=== PATIENT | female | born 1985 | race Caucasian/White ===

== ENCOUNTER → 2018-05-02 | Outpatient (CLI) | payer OTHER ==
--- NOTE | 2018-05-02 16:31 | RADIOLOGY REPORT (SQ) ---
EXAM DESCRIPTION: T SPINE AP/LAT COMPLETED DATE/TIME: 05/02/2018 2:56 pm REASON FOR STUDY: M54.6 ACUTE RIGHT-SIDED THORACIC BACK PAIN COMPARISON: None. NUMBER OF VIEWS: Two views supine. Two views erect. TECHNIQUE: AP and lateral radiographic images acquired of the thoracic spine. LIMITATIONS: None. FINDINGS: MINERALIZATION: Normal. ALIGNMENT: Mild scoliosis convex right. VERTEBRAE: No fracture or bone lesion. Maintained height, normal segmentation. DISCS: No significant loss of height or significant narrowing. No large osteophytes. HARDWARE: None in the spine. MEDIASTINUM AND SOFT TISSUES: Normal heart size and aortic contour. No soft tissue abnormality. VISUALIZED LUNG THORNTON: Clear. OTHER: No other significant finding. IMPRESSION: Mild scoliosis convex right. No acute findings. TECHNICAL DOCUMENTATION: JOB ID: [id number] [employer]- All Rights Reserved Reading location - IP/workstation name: [email or web address]
== END ==
LOC: OD 14:29
PROVIDERS: ATTEND Nurse Practitioner Family
DX: M54.6 Pain in thoracic spine (principal); M41.84 Other forms of scoliosis, thoracic region
CPT/HCPCS: 72070

== ENCOUNTER → 2018-10-19 | Outpatient (CLI) | payer OTHER ==
--- NOTE | 2018-10-19 13:50 | RADIOLOGY REPORT (SQ) ---
EXAM DESCRIPTION: SCOLIOSIS SERIES COMPLETED DATE/TIME: 10/19/2018 1:19 pm REASON FOR STUDY: SCOLIOSIS M41.9 SCOLIOSIS, UNSPECIFIED COMPARISON: April 2018 NUMBER OF VIEWS: One view. TECHNIQUE: Standing AP exam of the thoracolumbar spine. LIMITATIONS: None. FINDINGS: The previously described mild thoracic scoliosis convex to the right is again identified a nd appears essentially unchanged. No significant vertebral compression or disc space reduction is se en. No bony anomalies are identified. IMPRESSION: No significant interval change. The previously described mild thoracic scoliosis convex to the right is again identified and appears essentially unchanged. Other findings as noted above TECHNICAL DOCUMENTATION: JOB ID: [id number] [employer]- All Rights Reserved Reading location - IP/workstation name: [email or web address]
== END ==
LOC: OD 12:48
PROVIDERS: ATTEND Nurse Practitioner Family
DX: M41.9 Scoliosis, unspecified (principal)
CPT/HCPCS: 72082

== ENCOUNTER 2018-11-11 12:41 | Emergency (ER) | payer OTHER ==
[2018-11-11 15:16] LABS: APPEARANCE,URINE SLIGHTLY-CLOUDY; BILIRUBIN,URINE NEGATIVE (NEGATIVE); COLOR,URINE YELLOW; GLUCOSE, URINE NEGATIVE (NEGATIVE); KETONES,URINE TRACE mg/dL (NEGATIVE); LEUKOCYTE ESTERASE,URINE NEGATIVE (NEGATIVE); NITRITE,URINE NEGATIVE (NEGATIVE); PROTEIN,URINE NEGATIVE (NEGATIVE)
--- NOTE | 2018-11-11 16:01 | ER Document Report ---
ED Medical Screen (RME) - General Chief Complaint: Cough Stated Complaint: SHORTNESS OF BREATH Time Seen by Provider: 11/11/18 14:07 Mode of Arrival: Ambulatory TRAVEL OUTSIDE OF THE [place] IN LAST 30 DAYS: No - HPI Patient complains to provider of: Nausea and hives Onset: Other - 33-year-old female who is 8 weeks , presents for evaluation of nausea as well as a development of hives some sore throat and a cough over the last 2 days including her legs lower back and hands. She took some Benadryl which helped the symptoms but did not make the entirely go away. She is not take anything to try and help with the nausea and vomiting either. - Related Data Allergies/Adverse Reactions: amoxicillin Allergy (Verified 11/11/18 13:13) Penicillins Allergy (Verified 11/11/18 13:13) Sulfa (Sulfonamide Antibiotics) Allergy (Verified 11/11/18 13:13) Past Medical History - Social History Chew tobacco use (# tins/day): No Drug Abuse: None Renal/ Medical History: Denies: Hx Peritoneal Dialysis Psychiatric Medical History: Reports: Hx Attention Deficit Hyperactivity Disorder, Hx Depression Past Surgical History: Reports: Hx Tonsillectomy Physical Exam - Vital signs Vitals: Temp Pulse Resp BP Pulse Ox 98.8 F 81 14 115/79 99 11/11/18 13:29 11/11/18 13:29 11/11/18 13:29 11/11/18 13:29 11/11/18 13:29 Course - Vital Signs Vital signs: Temp Pulse Resp BP Pulse Ox 98.8 F 78 16 110/76 98 11/11/18 13:29 11/11/18 16:13 11/11/18 16:13 11/11/18 16:13 11/11/18 16:13 - Laboratory Laboratory results interpreted by me: 11/11/18 14:56 Urine Ketones TRACE H Urine Urobilinogen 4.0 H Urine Ascorbic Acid 40 H Urine HCG, Qual POSITIVE H Doctor's Discharge - Discharge Clinical Impression: Hives, Nausea Qualifiers: Weeks of gestation: 8 weeks Qualified Code(s): Z3A.08 - 8 weeks gestation of Condition: Good Disposition: HOME, SELF-CARE Instructions: Acetaminophen, Fever ([facility]), Viral Syndrome ([facility]) Additional Instructions: You were seen today in the emergency department for your hives sore throat crampy belly pain and chest sensation. Benadryl is safe to take while you are . If you keep having these bumps on your hands you may also start taking Zyrtec as it is helpful against hives. If you are having fevers and chills take Tylenol to help with your symptoms. You can use saline gargles to help with your sore throat. For your nausea you should start taking a medicine called doxylamine as well as vitamin B6 each day. You need to take it daily for it to be effective. You have been given a prescription also for Phenergan in case you needed for nausea. Prescriptions: Cetirizine HCl [Zyrtec] 10 mg PO DAILY PRN #30 capsule PRN Reason: Doxylamine Succinate [Unisom] 12.5 mg PO DAILY #30 tablet Promethazine HCl [Phenergan 25 mg Tablet] 25 mg PO DAILY PRN #10 tablet PRN Reason: Pyridoxine HCl [Vitamin B-6 Tablet 50 mg] 50 mg PO DAILY PRN #1 pkg PRN Reason: Referrals: CATHRYN GARCIA, [employer] WORKER [Primary Care Provider] - Follow up as needed
[2018-11-11 16:14] VITALS: BP 110/76
== END 2018-11-11 16:13 | disposition home or self-care (01) ==
LOC: ER 12:41
DX: O99.711 Diseases of the skin and subcutaneous tissue complicating pregnancy, first trimester (principal); L50.9 Urticaria, unspecified; O21.9 Vomiting of pregnancy, unspecified; O99.511 Diseases of the respiratory system complicating pregnancy, first trimester; J02.9 Acute pharyngitis, unspecified; O26.891 Other specified pregnancy related conditions, first trimester; R05 Cough; Z3A.08 8 weeks gestation of pregnancy; Z88.0 Allergy status to penicillin; Z88.2 Allergy status to sulfonamides
CPT/HCPCS: 81001; 81025; 99284